=== PATIENT | female | born 1965 | race Caucasian/White ===

== ENCOUNTER 2024-04-26 12:40 | Outpatient (CLI) | payer BC ==
[~2024-04-26 12:40] MED LIST: Iopamidol 300 61% 100 ML VIAL FS ONE
== END 2024-04-26 12:41 | disposition home or self-care (01) ==
LOC: CSHCT 12:40
PROVIDERS: ATTEND Internal Medicine
DX: E04.1 Nontoxic single thyroid nodule (principal); R59.0 Localized enlarged lymph nodes
CPT/HCPCS: 70491; 76536; Q9967